=== PATIENT | female | born 1985 | race American Indian/Alaskan Native ===

== ENCOUNTER 2017-02-15 17:13 | Emergency (ER) | payer MEDICAID ==
[2017-02-15 17:53] VITALS: TEMP 98.9
--- NOTE | 2017-02-15 19:12 | C.PDOC ---
Time Seen by Provider: 02/15/17 19:11 Chief Complaint (Nursing): Shortness Of Breath Past Medical History Vital Signs: Last Vital Signs Temp 98.9 F 02/15/17 17:50 Pulse 99 H 02/15/17 17:50 Resp 22 02/15/17 17:50 BP 126/81 02/15/17 17:50 Pulse Ox 100 02/15/17 17:50 Family History: States: Unknown Family Hx - Social History Hx Tobacco Use: No Hx Alcohol Use: Yes Hx Substance Use: No - Immunization History Hx Tetanus Toxoid Vaccination: No Hx Influenza Vaccination: No Hx Pneumococcal Vaccination: No ED Course And Treatment O2 Sat by Pulse Oximetry: 100
[2017-02-15] MEDS ORDERED: Albuterol-Ipratrop 3 mg / 0.5 (3 ml) UD IH STA (19:18)
--- NOTE | 2017-02-15 19:19 | C.PDOC ---
History Of Present Illness A 31 y/o female presents to the ER c/o sore throat and ear pain for 6 days. Pt notes the pain as 4/10. Pt denies fever, chills, nausea, vomiting, or any other complaints. Time Seen by Provider: 02/15/17 19:11 Chief Complaint (Nursing): Shortness Of Breath History Per: Patient History/Exam Limitations: None Onset/Duration Of Symptoms: Days Current Symptoms Are (Timing): Still Present Quality (Mouth/Throat): Tenderness Symptoms Have Been: Continuous Severity: Moderate Pain Scale Rating Of: 4 Anticoagulant/Antiplatlet Use?: No Recent Aspirin Use: No Past Medical History Reviewed: Historical Data, Nursing Documentation, Vital Signs Vital Signs: Last Vital Signs Temp 98.9 F 02/15/17 17:50 Pulse 99 H 02/15/17 17:50 Resp 22 02/15/17 17:50 BP 126/81 02/15/17 17:50 Pulse Ox 100 02/15/17 19:25 Family History: States: Unknown Family Hx - Social History Hx Tobacco Use: No Hx Alcohol Use: Yes Hx Substance Use: No - Immunization History Hx Tetanus Toxoid Vaccination: No Hx Influenza Vaccination: No Hx Pneumococcal Vaccination: No Review Of Systems Except As Marked, All Systems Reviewed And Found Negative. Constitutional: Negative for: Fever, Chills ENT: Positive for: Ear Pain, Throat Pain Respiratory: Negative for: Shortness of Breath Gastrointestinal: Negative for: Nausea, Vomiting Musculoskeletal: Positive for: Neck Pain Skin: Negative for: Rash, Lesions, Jaundice, Bruising Neurological: Negative for: Weakness Psych: Negative for: Anxiety Physical Exam - Physical Exam Appears: Non-toxic, No Acute Distress Skin: Warm, Dry Head: Normacephalic Eye(s): bilateral: Normal Inspection, PERRL, EOMI Ear(s): Bilateral: Normal, Other (Lots of cerumen but TM visualized) Oral Mucosa: Moist Throat: Erythema (Mild), No Exudate, No Drooling Neck: Trachea Midline, Supple Chest: Symmetrical Cardiovascular: Rhythm Regular Respiratory: No Rales, No Rhonchi, No Wheezing Neurological/Psych: Oriented x3, Normal Speech, Normal Cognition, No Other (No focal deficit) Gait: Steady ED Course And Treatment O2 Sat by Pulse Oximetry: 100 (RA) Pulse Ox Interpretation: Normal Progress Note: patient does not want to get nebs, or wait for results. wants to go home Disposition Counseled Patient/Family Regarding: Studies Performed, Diagnosis, Need For Followup - Disposition Referrals: [facility] [Outside] Disposition: HOME/ ROUTINE Disposition Time: 19:18 Condition: FAIR Additional Instructions: Please return if symptoms recur Prescriptions: Albuterol HFA [Ventolin HFA 90 mcg/actuation (8 g)] 2 puff IH [id number] #1 puff Ibuprofen [Motrin] 600 mg PO TID PRN #15 tab PRN Reason: Pain, Moderate (4-7) Penicillin VK [Pen-Vee K] 2 tab PO BID #40 tab Instructions: Pharyngitis (ED), Tonsillitis (ED) - Clinical Impression Clinical Impression: Pharyngitis - Scribe Statement The provider has reviewed the documentation as recorded by the Vivianibdeo adan All medical record entries made by the Vivianibdeo were at my direction and personally dictated by me. I have reviewed the chart and agree that the record accurately reflects my personal performance of the history, physical exam, medical decision making, and the department course for this patient. I have also personally directed, reviewed, and agree with the discharge instructions and disposition.
[2017-02-15] MEDS ORDERED: Albuterol-Ipratrop 3 mg / 0.5 (3 ml) UD ONE (19:30)
[2017-02-15 19:50] VITALS: RESP 16
[2017-02-15 19:54] VITALS: BP 132/75; PULSE 98; O2SAT 98
== END 2017-02-15 19:53 | disposition home or self-care (01) ==
LOC: C.ER 17:13
DX: J02.9 Acute pharyngitis, unspecified (principal)

== ENCOUNTER 2017-05-12 19:50 | Emergency (ER) | payer MEDICAID ==
[2017-05-12 20:32] VITALS: O2SAT 100
[2017-05-12] MEDS ORDERED: Sodium Chloride 0.9% 1,000 ML IV ONE (21:00)
[2017-05-12] MEDS ORDERED: Sodium Chloride 0.9% 1,000 ML ONE (21:32)
--- NOTE | 2017-05-12 21:32 | C.PDOC ---
History Of Present Illness 32 year old female who presents to the ER with a complaint of abdominal pain, diarrhea, dizziness, and multiple episodes of vomiting after taking ambien for the first time this evening. 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 After not sleeping for 2 days, she went to her PMD who gave her an Rx for ambien; however, after taking it at 06:00 today she started developing these symptoms. Patient currently feels a burning sensation in her stomach and dizziness; denies any PMHx, Hx of similar symptoms, fever, or chills. Time Seen by Provider: 05/12/17 20:55 Chief Complaint (Nursing): Abdominal Pain History Per: Patient History/Exam Limitations: no limitations Onset/Duration Of Symptoms: Hrs Current Symptoms Are (Timing): Still Present Context: Other (Ambien) Location Of Pain/Discomfort: Diffuse Radiation Of Pain To:: None Quality Of Discomfort: Unable To Describe Associated Symptoms: Vomiting, Diarrhea. denies: Fever, Chills Exacerbating Factors: None Alleviating Factors: None Recent travel outside of the [place]: No Abnormal Vaginal Bleeding: No Past Medical History Reviewed: Historical Data, Nursing Documentation, Vital Signs Vital Signs: Last Vital Signs Temp 98 F 05/12/17 20:28 Pulse 96 H 05/12/17 20:28 Resp 20 05/12/17 20:28 BP 107/68 05/12/17 20:28 Pulse Ox 100 05/12/17 22:16 - Medical History PMH: No Chronic Diseases Surgical History: No Surg Hx Family History: States: Unknown Family Hx - Social History Hx Tobacco Use: No Hx Alcohol Use: Yes Hx Substance Use: No - Immunization History Hx Tetanus Toxoid Vaccination: No Hx Influenza Vaccination: No Hx Pneumococcal Vaccination: No Review Of Systems Constitutional: Negative for: Fever, Chills Gastrointestinal: Positive for: Vomiting, Abdominal Pain, Diarrhea Neurological: Positive for: Dizziness. Negative for: Weakness, Numbness Physical Exam - Physical Exam Appears: Non-toxic Skin: Normal Color, Warm, Dry Head: Atraumatic, Normacephalic Oral Mucosa: Moist Neck: Normal, Supple Chest: Symmetrical, No Tenderness Cardiovascular: Rhythm Regular, No Murmur Respiratory: Normal Breath Sounds, No Rales, No Rhonchi, No Wheezing Gastrointestinal/Abdominal: Bowel Sounds (Normal), Soft, Tenderness (Diffuse), No Guarding, No Rebound Neurological/Psych: Oriented x3, Normal Speech, Normal Cognition ED Course And Treatment - Laboratory Results Result Diagrams: 05/12/17 21:34 05/12/17 21:34 Lab Interpretation: No Acute Changes O2 Sat by Pulse Oximetry: 100 (Room air) Pulse Ox Interpretation: Normal Progress Note: Blood work ordered. Pepcid, reglan, zofran, and IV fluids administered. Reevaluation Time: 22:16 Reassessment Condition: Improved (Feeling better and feels as if she can tolerate po fluids.) Disposition Counseled Patient/Family Regarding: Studies Performed, Diagnosis, Need For Followup, Rx Given - Disposition Referrals: Ej Lundberg MD [Medical Doctor] - Disposition: HOME/ ROUTINE Disposition Time: 23:14 Condition: IMPROVED Prescriptions: Ondansetron ODT [Zofran ODT] 1 odt PO BID PRN #6 odt PRN Reason: Nausea/Vomiting Instructions: Acute Nausea and Vomiting (ED), Adverse Drug Reaction (ED) Forms: [employer] (Austrian), Work Excuse - Clinical Impression Clinical Impression: Nausea, Vomiting, Adverse reaction to drug - Scribe Statement The provider has reviewed the documentation as recorded by the Scribe Chico Fraser All medical record entries made by the Scribe were at my direction and personally dictated by me. I have reviewed the chart and agree that the record accurately reflects my personal performance of the history, physical exam, medical decision making, and the department course for this patient. I have also personally directed, reviewed, and agree with the discharge instructions and disposition.
[2017-05-12 21:37] LABS: BASO # 0.1 K/uL (0.0-0.2); BASO % 0.7 % (0.0-2.0); EOS # 0.1 K/uL (0.0-0.7); EOS % 0.5 % (0.0-4.0); HEMATOCRIT 41.6 % (34.0-47.0); LYMPH % 8.2 % (20.0-40.0); MEAN CELL VOLUME 87.8 fL (81.0-99.0); MEAN CORPUSCULAR HGB CONC 33.1 g/dL (33.0-37.0); MEAN PLATELET VOLUME 10.6 fL (7.2-11.7); MONO # 0.6 K/uL (0.0-0.8); MONO % 4.6 % (0.0-10.0); PLATELET COUNT 204 K/uL (130-400); RED CELL DISTRIBUTION WIDTH 13.8 % (11.5-14.5); WHITE BLOOD COUNT 12.2 K/uL (4.8-10.8)
[2017-05-12 21:46] LABS: CHLORIDE 102 mmol/L (98-107); POTASSIUM 4.3 mmol/L (3.6-5.2); SODIUM 138 mmol/L (132-148)
[2017-05-12 21:48] LABS: ALB/GLOB RATIO 1.1 (1.0-2.1); ALKALINE PHOSPHATASE 79 U/L (38-126); AST/SGOT 32 U/L (14-36); BILIRUBIN,TOTAL 0.9 mg/dL (0.2-1.3); CARBON DIOXIDE 21 mmol/L (22-30); GFR AFRICAN-AMERICAN > 60; TOTAL PROTEIN 8.4 g/dL (6.3-8.3)
[2017-05-12 21:49] LABS: ALT/SGPT 31 U/L (9-52); BLOOD UREA NITROGEN 14 mg/dL (7-17); CALCIUM 9.7 mg/dl (8.6-10.4); GLUCOSE,RANDOM 88 mg/dL (65-105)
[2017-05-12 22:22] LABS: NEUTROPHIL 83 % (50-75); TOTAL CELLS COUNTED 100
[2017-05-12 23:40] VITALS: BP 114/70; PULSE 90; RESP 16; TEMP 98.2
== END 2017-05-12 23:41 | disposition home or self-care (01) ==
LOC: C.ER 19:50
DX: R11.2 Nausea with vomiting, unspecified (principal); T42.6X5A Adverse effect of other antiepileptic and sedative-hypnotic drugs, initial encounter; Y92.009 Unspecified place in unspecified non-institutional (private) residence as the place of occurrence of the external cause
CPT/HCPCS: 80053; 83690; 85025; 96361; 96374; 96375; 99284; J2405; J2765; J7040

== ENCOUNTER 2017-06-05 04:42 | Emergency (ER) | payer MEDICAID ==
[2017-06-05 04:55] VITALS: RESP 14; TEMP 98.8
[2017-06-05] MEDS ORDERED: Sodium Chloride 0.9% 1,000 ML IV ONE ×2 (04:57)
--- NOTE | 2017-06-05 05:00 | C.PDOC ---
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 Pt admits, had few drinks when started to vomit , developed epigstric pain. Otherwise, pt denies fever, chills, headache, dizziness, visual changes, CP, SOB, dyspnea, hematemesis, diarrhea, UTI sx. Last NMP 2 weeks ago. At the time of evaluation, appears intoxicated. Time Seen by Provider: 06/05/17 04:56 Chief Complaint (Nursing): Abdominal Pain History Per: Patient Onset/Duration Of Symptoms: Sudden Onset Past Medical History Reviewed: Historical Data, Nursing Documentation, Vital Signs Vital Signs: Last Vital Signs Temp 98.8 F 06/05/17 04:53 Pulse 70 06/05/17 05:52 Resp 14 06/05/17 05:52 BP 104/54 L 06/05/17 05:52 Pulse Ox 96 06/05/17 05:52 Family History: States: Unknown Family Hx - Social History Hx Tobacco Use: No Hx Alcohol Use: Yes Hx Substance Use: No - Immunization History Hx Tetanus Toxoid Vaccination: No Hx Influenza Vaccination: No Hx Pneumococcal Vaccination: No Review Of Systems Except As Marked, All Systems Reviewed And Found Negative. Constitutional: Negative for: Fever, Chills Eyes: Negative for: Vision Change ENT: Negative for: Throat Pain Cardiovascular: Negative for: Chest Pain, Palpitations Respiratory: Negative for: Cough, Shortness of Breath, Wheezing Gastrointestinal: Positive for: Nausea, Vomiting, Abdominal Pain. Negative for : Diarrhea, Constipation, Melena, Hematochezia, Hematemesis Genitourinary: Negative for: Dysuria, Frequency, Vaginal Discharge, Vaginal Bleeding Musculoskeletal: Negative for: Neck Pain, Back Pain Skin: Negative for: Rash Neurological: Negative for: Weakness, Numbness, Altered Mental Status, Headache , Dizziness Physical Exam - Physical Exam Appears: Well, Non-toxic, No Acute Distress Skin: Normal Color, Warm, Dry, No Rash Head: Atraumatic, Normacephalic Eye(s): bilateral: PERRL Nose: No Flaring, No Discharge Oral Mucosa: Moist, No Drooling Tongue: Normal Appearing Lips: Normal Appearing Throat: No Erythema, No Drooling Neck: Trachea Midline, Supple Cardiovascular: Rhythm Regular, No Murmur, No JVD Respiratory: No Decreased Breath Sounds, No Accessory Muscle Use, No Stridor, No Wheezing Gastrointestinal/Abdominal: Soft, Tenderness (mild epigastric and suprapubic tenderness.), No Distention, No Guarding, No Rebound Back: No CVA Tenderness Extremity: Normal ROM, No Pedal Edema, No Deformity Neurological/Psych: Oriented x3, Normal Speech, Normal Motor, Normal Sensation, Normal Reflexes ED Course And Treatment - Laboratory Results Result Diagrams: 06/05/17 05:11 06/05/17 05:22 Lab Interpretation: No Acute Changes O2 Sat by Pulse Oximetry: 100 Pulse Ox Interpretation: Normal Progress Note: On re-eavl, pt resting comfortably in bed, not in any apparent distress. AFebrile, hemodynamicaly stable. non-toxic. Abd: benign, (-) guarding, (-) rebound. Blood work review and appears without acute abnoramlities. CT abd/pelvis-pendiing. Case discussed and signed out to Elodia FAULKNER. Imaging, re-eval, dispo- pending. Disposition - Disposition Disposition Time: 06:34 Condition: STABLE Forms: [employer] (Ecuadorean) - Clinical Impression Clinical Impression: Abdominal pain, Vomiting Physician Patient Turnover Patient Signed Over To: Yvonne Hayes Handoff Comments: CT abd/pelvis w/IV contrast, re-eval, dispo- pending
[2017-06-05] MEDS ORDERED: Sodium Chloride 0.9% 1,000 ML ONE (05:13)
[2017-06-05 05:14] LABS: BASO % 0.6 % (0.0-2.0); EOS % 0.8 % (0.0-4.0); LYMPH # 1.3 K/uL (1.0-4.3); LYMPH % 24.9 % (20.0-40.0); MEAN CELL VOLUME 88.9 fL (81.0-99.0); MEAN CORPUSCULAR HEMOGLOBIN 29.6 pg (27.0-31.0); MEAN CORPUSCULAR HGB CONC 33.3 g/dL (33.0-37.0); MEAN PLATELET VOLUME 9.8 fL (7.2-11.7); MONO # 0.3 K/uL (0.0-0.8); NRBC % 0.1 % (0.0-2.0); RED CELL DISTRIBUTION WIDTH 14.4 % (11.5-14.5); WHITE BLOOD COUNT 5.4 K/uL (4.8-10.8)
[2017-06-05 05:19] LABS: RBC URINE 5 /hpf (0-3); URINE BACTERIA RARE (<OCC); URINE BILIRUBIN NEGATIVE (NEGATIVE); URINE BLOOD 1+ (NEGATIVE); URINE COLOR Yellow (YELLOW); URINE GLUCOSE (UA) NORMAL (Normal); URINE KETONE NEGATIVE (NEGATIVE); URINE LEUKOCYTE ESTERASE NEG Leu/uL (Negative); URINE PROTEIN NEGATIVE (NEGATIVE); WBC URINE 2 /hpf (0-5)
[2017-06-05 05:56] VITALS: BP 104/54; PULSE 70
[2017-06-05 06:01] LABS: ALB/GLOB RATIO 1.1 (1.0-2.1); ALKALINE PHOSPHATASE 51 U/L (38-126); ALT/SGPT 30 U/L (9-52); AST/SGOT 17 U/L (14-36); BILIRUBIN,TOTAL 0.4 mg/dL (0.2-1.3); BLOOD UREA NITROGEN 12 mg/dL (7-17); CALCIUM 9.4 mg/dl (8.6-10.4); CARBON DIOXIDE 21 mmol/L (22-30); CHLORIDE 109 mmol/L (98-107); GFR AFRICAN-AMERICAN > 60; GLUCOSE,RANDOM 104 mg/dL (65-105); POTASSIUM 3.8 mmol/L (3.6-5.2); SODIUM 144 mmol/L (132-148); TOTAL PROTEIN 7.3 g/dL (6.3-8.3)
[2017-06-05] MEDS ORDERED: Iodixanol 320 MG/ML 100 ML BOTTLE IV ONE ×2 (06:25→06:31)
[2017-06-05 06:34] VITALS: O2SAT 100
== END 2017-06-05 06:56 | disposition left against medical advice (07) ==
LOC: C.ER 04:42
DX: R10.13 Epigastric pain (principal); R11.10 Vomiting, unspecified
CPT/HCPCS: 80053; 80324; 80345; 80346; 80349; 80353; 80358; 80361; 81001; 83690; 83992; 84703; 85025; 96374; 96375; 99284; J2405; J7040; Q9967

== ENCOUNTER 2017-06-14 10:42 | Emergency (ER) | payer MEDICAID ==
[2017-06-14 10:46] VITALS: BP 108/76; PULSE 104; RESP 20; TEMP 98.4; O2SAT 100
[2017-06-14 11:33] LABS: RBC URINE < 1 /hpf (0-3); URINE BILIRUBIN NEGATIVE (NEGATIVE); URINE BLOOD NEGATIVE (NEGATIVE); URINE COLOR Yellow (YELLOW); URINE GLUCOSE (UA) NORMAL (Normal); URINE KETONE NEGATIVE (NEGATIVE); URINE LEUKOCYTE ESTERASE NEG Leu/uL (Negative); URINE PROTEIN NEGATIVE (NEGATIVE); URINE UROBILINOGEN NORMAL mg/dL (0.2-1.0); WBC URINE 1 /hpf (0-5)
--- NOTE | 2017-06-14 11:43 | C.PDOC ---
History Of Present Illness 32 yo female come in for evaluation of watery diarrhea associated with cramping intermittent abdominal pain since yesterday. Pt admits, had cold sx last week associated with sore throat, nasal congestion and was seen by PMD, received Rx: Penicillin VK and Tamiflu. Pt sts, " cold sx resolved almost completely but yesterday developed diarrhea". Pt sts, had 4 episodes of watery diarrhea yesterday and few today. Pt sts, completed abx and has one more day today of Tamiflu , did not take. Otherwise, pt denies fever, chills, headache, neck pain, drooling, dysphagia, dyspnea, SOB, CP, cough, wheezing, vomiting, hematemesis, melena, back pain, UTI sx. Pt admits, had breakfast with chicken soup and banana, tolerate well. Pt also request test, " missed my menstrual for 4 days". Ambulate to Ed for evaluation, not in any apparent distress. Time Seen by Provider: 06/14/17 10:53 Chief Complaint (Nursing): GI Problem History Per: Patient Onset/Duration Of Symptoms: Gradual Past Medical History Reviewed: Historical Data, Nursing Documentation, Vital Signs Vital Signs: Last Vital Signs Temp 98.4 F 06/14/17 10:45 Pulse 104 H 06/14/17 10:45 Resp 20 06/14/17 10:45 BP 108/76 06/14/17 10:45 Pulse Ox 100 06/14/17 11:54 - Medical History PMH: No Chronic Diseases Surgical History: No Surg Hx Family History: States: No Known Family Hx - Social History Hx Tobacco Use: No Hx Alcohol Use: Yes Hx Substance Use: No - Immunization History Hx Tetanus Toxoid Vaccination: No Hx Influenza Vaccination: No Hx Pneumococcal Vaccination: No Review Of Systems Except As Marked, All Systems Reviewed And Found Negative. Constitutional: Negative for: Fever, Chills ENT: Positive for: Nose Congestion Respiratory: Negative for: Cough, Shortness of Breath, Wheezing Gastrointestinal: Positive for: Abdominal Pain, Diarrhea. Negative for: Nausea , Vomiting, Melena, Hematochezia, Hematemesis Genitourinary: Negative for: Dysuria Musculoskeletal: Negative for: Neck Pain, Back Pain Skin: Negative for: Rash Neurological: Negative for: Weakness, Numbness, Altered Mental Status, Headache , Dizziness Physical Exam - Physical Exam Appears: Well, No Acute Distress Skin: Normal Color, Warm, Dry, No Rash Eye(s): bilateral: PERRL Ear(s): Bilateral: Normal Nose: No Flaring, No Discharge Oral Mucosa: Moist, No Drooling Throat: No Erythema, No Exudate, No Drooling Neck: Supple Cardiovascular: Rhythm Regular, No JVD Respiratory: No Decreased Breath Sounds, No Accessory Muscle Use, No Stridor, No Wheezing Gastrointestinal/Abdominal: Soft, Tenderness (mild suprapubic tenderness), No Distention, No Guarding Back: No CVA Tenderness Extremity: No Pedal Edema, No Deformity, No Swelling Neurological/Psych: Oriented x3, Normal Speech, Normal Motor, Normal Sensation, Normal Reflexes ED Course And Treatment - Laboratory Results Urine POC: Negative O2 Sat by Pulse Oximetry: 100 Pulse Ox Interpretation: Normal Progress Note: On re-evaluation, pt is afebrile, hemodynamicaly stable. Non- toxic. Tolerate Po well in ED. PUlseOx 100% RA. Neck: Supple. ENT: no acute findings. Lungs: clear B/L, BS equal B/L. CVS: (+)S1S2, reg. ABd: benign, (- ) guarding, (-) rebound, (-) localized tenderness. UA results review and appears without normal. Pt has clinical findings c/w diarrhea r/o viral illness vs medication side effect. Pt advised on course of ds. ref. to F/u with PMD in 1- 2 days for re-evaluation. Return to ED if any worsening or new changes. Disposition Counseled Patient/Family Regarding: Diagnosis, Need For Followup, Rx Given - Disposition Referrals: Shaik Meyers MD [Staff Provider] - Disposition: HOME/ ROUTINE Disposition Time: 11:40 Condition: STABLE Additional Instructions: Encourage fluids Diet restriction, BRAT diet ( banana, rice, apple sauce, toast, advance as tolerated in 1-2 days Follow up with PMD In 1-2 days for re-evaluation. Return to ED if any worsening or new changes. Prescriptions: Famotidine [Pepcid AC] 10 mg PO BID #20 tablet Sucralfate [Carafate] 1 gm PO TID #20 tab Instructions: Acute Diarrhea (ED), Viral Syndrome (ED) Forms: [employer] (Icelandic), School Excuse, Work Excuse - Clinical Impression Clinical Impression: Viral disease, Diarrhea
== END 2017-06-14 12:15 | disposition home or self-care (01) ==
LOC: C.ER 10:42
DX: B34.9 Viral infection, unspecified (principal); R19.7 Diarrhea, unspecified

== ENCOUNTER 2017-06-27 12:24 | Emergency (ER) | payer MEDICAID ==
[2017-06-27 12:30] VITALS: RESP 18; TEMP 98
--- NOTE | 2017-06-27 13:10 | C.PDOC ---
History Of Present Illness 32 y/o female who presents to the ED complaining of a sore throat since yesterday. Patient reports she has an appointment to see Dr. Smallwood in a week. Time Seen by Provider: 06/27/17 12:32 Chief Complaint (Nursing): ENT Problem History Per: Patient History/Exam Limitations: None Onset/Duration Of Symptoms: Days (1 day ago) Current Symptoms Are (Timing): Still Present Quality (Mouth/Throat): Other (strep throat) Past Medical History Reviewed: Historical Data, Nursing Documentation, Vital Signs Vital Signs: Last Vital Signs Temp 98 F 06/27/17 12:27 Pulse 75 06/27/17 13:29 Resp 18 06/27/17 13:29 BP 132/75 06/27/17 13:29 Pulse Ox 100 06/27/17 14:49 - Medical History PMH: No Chronic Diseases Surgical History: No Surg Hx Family History: States: Unknown Family Hx - Social History Hx Tobacco Use: No Hx Alcohol Use: Yes Hx Substance Use: No - Immunization History Hx Tetanus Toxoid Vaccination: No Hx Influenza Vaccination: No Hx Pneumococcal Vaccination: No Review Of Systems Constitutional: Negative for: Fever ENT: Positive for: Throat Pain. Negative for: Ear Pain, Nose Congestion, Throat Swelling Cardiovascular: Negative for: Chest Pain Respiratory: Negative for: Shortness of Breath Gastrointestinal: Negative for: Abdominal Pain Genitourinary: Negative for: Dysuria Skin: Negative for: Rash Neurological: Negative for: Headache Physical Exam - Physical Exam Appears: Well, Non-toxic, No Acute Distress Skin: Normal Color, Warm, Dry Head: Atraumatic, Normacephalic Eye(s): bilateral: Normal Inspection, EOMI Ear(s): Bilateral: Normal Nose: Normal, No Discharge Oral Mucosa: Moist Tongue: Normal Appearing, No Swelling Lips: Normal Appearing, No Swelling Teeth: Normal Dentition Throat: Erythema, No Exudate, No Drooling, No Mass Neck: Normal ROM Chest: Symmetrical Cardiovascular: Rhythm Regular Respiratory: Normal Breath Sounds Extremity: Bilateral: Atraumatic, Normal ROM Neurological/Psych: Oriented x3, Normal Speech Gait: Steady ED Course And Treatment O2 Sat by Pulse Oximetry: 100 (room air) Pulse Ox Interpretation: Normal Medical Decision Making Medical Decision Making: Impression: 32 y/o female with sore throat since yesterday Plan: rapid strep Progress Notes: Step is negative. Patient remains without fever in no distress. Explain lab result. Patient is insisting on antibiotics stating she frequently gets throat infections. I will give Rx and recommend waiting few days and supportive treatment, if symptoms worsen may start the antibiotic. Patient is stable for discharge Disposition Counseled Patient/Family Regarding: Diagnosis, Need For Followup, Rx Given - Disposition Referrals: Avtar Smallwood MD [Staff Provider] - Disposition: HOME/ ROUTINE Disposition Time: 13:09 Condition: STABLE Additional Instructions: Take Tylenol or Motrin alternating every 4-6 hours for Fever 100.4F or higher. Rest and drink plenty of fluids to prevent dehydration. Try vanilla ice cream to improve eating/drinking, this is cold soothing and tastes good. May also try lozenges or cepacol spary over the counter. Prescriptions: Amoxicillin [Amoxil 500 mg Cap] 500 mg PO BID #14 cap Benzocaine/Menthol [Cepacol Sore Throat] 1 paul MM Q2 #30 paul Instructions: Pharyngitis (ED) Forms: [employer] (Danish) - POA Present On Arrival: None - Clinical Impression Clinical Impression: Pharyngitis - Scribe Statement The provider has reviewed the documentation as recorded by the Scribe 06/27/2017 Scribe Attestation: Anay Henriquez MD Scribe Attestation: All medical record entries made by the Scribe were at my direction and personally dictated by me. I have reviewed the chart and agree that the record accurately reflects my personal performance of the history, physical exam, medical decision making, and the department course for this patient. I have also personally directed, reviewed, and agree with the discharge instructions and disposition.
[2017-06-27 13:30] VITALS: BP 132/75; PULSE 75
[2017-06-27 13:55] VITALS: O2SAT 100
== END 2017-06-27 13:30 | disposition home or self-care (01) ==
LOC: C.ER 12:24
DX: J02.9 Acute pharyngitis, unspecified (principal)

== ENCOUNTER 2017-07-27 09:39 | Emergency (ER) | payer MEDICAID ==
[2017-07-27 09:39] VITALS: BMI 25.4
[2017-07-27 09:48] VITALS: RESP 18; TEMP 98.9
[2017-07-27 11:04] VITALS: BP 124/75; PULSE 71; O2SAT 98
--- NOTE | 2017-07-27 11:14 | C.PDOC ---
History Of Present Illness 32 year old female presents to the ED with complaints of white patches inside of her mouth for a few days. Patient has been taking antibiotics for her tonsils which are scheduled to be removed next month. She notes she removes the white-les plaques on her own at times. Patient denies pain with swallowing, bleeding, or fever. Chief Complaint (Nursing): ENT Problem History Per: Patient History/Exam Limitations: None Onset/Duration Of Symptoms: Days Current Symptoms Are (Timing): Still Present Anticoagulant/Antiplatlet Use?: No Recent Aspirin Use: No Past Medical History Reviewed: Historical Data, Nursing Documentation, Vital Signs Vital Signs: Last Vital Signs Temp 98.9 F 07/27/17 09:44 Pulse 71 07/27/17 11:04 Resp 18 07/27/17 11:04 BP 124/75 07/27/17 11:04 Pulse Ox 98 07/27/17 18:38 Family History: States: Unknown Family Hx - Social History Hx Tobacco Use: No Hx Alcohol Use: Yes Hx Substance Use: No - Immunization History Hx Tetanus Toxoid Vaccination: No Hx Influenza Vaccination: No Hx Pneumococcal Vaccination: No Review Of Systems Constitutional: Negative for: Fever, Chills ENT: Positive for: Other (white patches inside mouth and mouth ). Negative for : Ear Pain, Nose Congestion Respiratory: Negative for: Cough Skin: Negative for: Rash Physical Exam - Physical Exam Appears: Non-toxic, No Acute Distress Skin: Warm, Dry, No Rash Head: Atraumatic, Normacephalic Eye(s): bilateral: Normal Inspection, PERRL, EOMI Ear(s): Bilateral: Normal Nose: Normal, No Discharge Oral Mucosa: Moist Tongue: Other (two punctate white-les nodules noted on left side of tongue ) Lips: Normal Appearing, No Swelling Throat: Normal, No Erythema, No Exudate Neck: Normal ROM, Supple Lymphatic: No Adenopathy Cardiovascular: Rhythm Regular, No Murmur Respiratory: No Rales, No Rhonchi, No Wheezing, Other (clear to auscultation bilaterally ) Neurological/Psych: Oriented x3 ED Course And Treatment O2 Sat by Pulse Oximetry: 98 (RA) Disposition - Disposition Referrals: Aura Rider, [Non-Staff] - Disposition: HOME/ ROUTINE Disposition Time: 10:10 Condition: GOOD Additional Instructions: Thank you for letting us take care of you today. Your provider was Dr. Darling. You were treated for mouth pain. The emergency medical care you received today was directed at your acute symptoms. If you were prescribed any medication, please fill it and take as directed. It may take several days for your symptoms to resolve. Return to the Emergency Department if your symptoms worsen, do not improve, or if you have any other problems. Please contact your doctor or call one of the physicians/clinics you have been referred to that are listed on the Patient Visit Information form that is included in your discharge packet. Bring any paperwork you were given at discharge with you along with any medications you are taking to your follow up visit. Our treatment cannot replace ongoing medical care by a primary care provider (PCP) outside of the emergency department. Thank you for allowing the [facility] team to be part of your care today. Follow up with your ENT doctor as scheduled for follow up. Prescriptions: Nystatin [Nystatin Oral Susp] 5 ml PO QID #1 bottle Instructions: Oral Candidiasis (ED) Forms: [employer] (Sri Lankan) - Clinical Impression Clinical Impression: Estefani, oral - Scribe Statement The provider has reviewed the documentation as recorded by the Scribe Oneida Hudson All medical record entries made by the Scribe were at my direction and personally dictated by me. I have reviewed the chart and agree that the record accurately reflects my personal performance of the history, physical exam, medical decision making, and the department course for this patient. I have also personally directed, reviewed, and agree with the discharge instructions and disposition.
== END 2017-07-27 11:05 | disposition home or self-care (01) ==
LOC: C.ER 09:39
DX: B37.0 Candidal stomatitis (principal)

== ENCOUNTER 2017-08-15 16:15 | Emergency (ER) | payer MEDICAID ==
[2017-08-15 16:15] VITALS: BMI 25.4
[2017-08-15 16:20] VITALS: TEMP 97.9
--- NOTE | 2017-08-15 17:35 | C.PDOC ---
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 Patient states her symptoms began after she ate pasta 1 hour ago. Patient then laid down and felt the sensation of blood draining down her throat. Patient states her symptoms have self-improved since onset. She denies fever, chills and has no other physical complaints at this time. Time Seen by Provider: 08/15/17 16:31 Chief Complaint (Nursing): ENT Problem History Per: Patient History/Exam Limitations: None Onset/Duration Of Symptoms: Hrs Current Symptoms Are (Timing): Better Quality (Mouth/Throat): Other (tonsillar bleeding ) Past Medical History Reviewed: Historical Data, Nursing Documentation, Vital Signs Vital Signs: Last Vital Signs Temp 97.9 F 08/15/17 16:18 Pulse 106 H 08/15/17 16:18 Resp 21 08/15/17 16:18 BP 136/99 H 08/15/17 16:18 Pulse Ox 100 08/15/17 18:03 - Medical History PMH: No Chronic Diseases Surgical History: Tonsillectomy (08/06/2017) Family History: States: Unknown Family Hx - Social History Hx Tobacco Use: No Hx Alcohol Use: Yes Hx Substance Use: No - Immunization History Hx Tetanus Toxoid Vaccination: No Hx Influenza Vaccination: No Hx Pneumococcal Vaccination: No Review Of Systems Constitutional: Negative for: Fever, Chills ENT: Positive for: Other (tonsillar bleeding ) Physical Exam - Physical Exam Appears: Well, Non-toxic, No Acute Distress, Other (anxious; pt spitting in cup , some blood noted in the cup) Skin: Warm, Dry Head: Atraumatic, Normacephalic Eye(s): bilateral: Normal Inspection, EOMI Nose: Normal Oral Mucosa: Moist Throat: Other ((+) RIght: blood clot (+) Left : min active bleeding and blood clot ) Neck: Normal, Normal ROM, Supple Chest: Symmetrical Respiratory: No Accessory Muscle Use Back: Normal Inspection Extremity: Normal ROM Neurological/Psych: Oriented x3, Normal Speech ED Course And Treatment O2 Sat by Pulse Oximetry: 100 (on RA) Pulse Ox Interpretation: Normal Progress Note: Case discussed with Dr Smallwood who instructes to gargle with ice water for 20 min. On re-evaluation, pt has been spitting the water out in the basin and there is no blood. Pt notes symptoms improved. (+) b/l eschar. No active bleeding or clots. Case discussed and pt evaluated by Dr Moya, agreed upon plan and treatment. Case discussed with Dr Smallwood again at 530pm, who instructed follow up in the office tomorrow morning at 9am. Pt was informed and agrees. Instructed to return to ER if symtpoms persist or worsen. Disposition - Disposition Referrals: Avtar Smallwood MD [Staff Provider] - Disposition: HOME/ ROUTINE Disposition Time: 18:00 Condition: STABLE Additional Instructions: Follow up with Dr Smallwood tomorrow morning at 9am in his office. Return to ER if symptoms return. 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 - Scribe Statement The provider has reviewed the documentation as recorded by the Scribe (Nerissa Love) All medical record entries made by the Scribe were at my direction and personally dictated by me. I have reviewed the chart and agree that the record accurately reflects my personal performance of the history, physical exam, medical decision making, and the department course for this patient. I have also personally directed, reviewed, and agree with the discharge instructions and disposition.
[2017-08-15 18:12] VITALS: BP 117/78; PULSE 91; RESP 18; O2SAT 97
== END 2017-08-15 18:13 | disposition home or self-care (01) ==
LOC: C.ER 16:15
DX: T81.89XA Other complications of procedures, not elsewhere classified, initial encounter (principal); Y83.8 Other surgical procedures as the cause of abnormal reaction of the patient, or of later complication, without mention of misadventure at the time of the procedure; Y92.89 Other specified places as the place of occurrence of the external cause

== ENCOUNTER 2017-10-05 07:59 | Emergency (ER) | payer MEDICAID ==
[2017-10-05 08:00] VITALS: BMI 25.4
[2017-10-05 08:07] VITALS: RESP 16
[2017-10-05] MEDS ORDERED: Dextrose 5%/0.45% NS 1,000 ML IV SCH ×2 (08:30→08:45)
[2017-10-05] MEDS ORDERED: Dextrose 5%/0.45% NS 1,000 ML IV ONE (08:36)
--- NOTE | 2017-10-05 08:42 | C.PDOC ---
History Of Present Illness 32 y/o female A2 and currently presents to ED with complaints of suprapubic pain with associated vomiting for 2 days and diarrhea since last night. Patient states she has decreased po intake and states she "feels weak". Patient denies fever, chills, vaginal bleeding, dysuria or any other complaints at this time. LMP 08/19/17 Time Seen by Provider: 10/05/17 08:11 Chief Complaint (Nursing): Abdominal Pain History Per: Patient History/Exam Limitations: no limitations Onset/Duration Of Symptoms: Days Current Symptoms Are (Timing): Still Present Location Of Pain/Discomfort: Suprapubic Quality Of Discomfort: Cramping Past Medical History Reviewed: Historical Data, Nursing Documentation, Vital Signs Vital Signs: Last Vital Signs Temp 98.7 F 10/05/17 12:23 Pulse 92 H 10/05/17 12:23 Resp 16 10/05/17 12:23 BP 99/62 L 10/05/17 12:23 Pulse Ox 100 10/07/17 11:28 Surgical History: Tonsillectomy (08/06/2017) Family History: States: No Known Family Hx - Social History Hx Tobacco Use: No Hx Alcohol Use: Yes Hx Substance Use: No - Immunization History Hx Tetanus Toxoid Vaccination: No Hx Influenza Vaccination: No Hx Pneumococcal Vaccination: No Review Of Systems Constitutional: Negative for: Fever, Chills Gastrointestinal: Positive for: Vomiting, Abdominal Pain, Diarrhea Genitourinary: Negative for: Dysuria, Vaginal Bleeding Musculoskeletal: Negative for: Back Pain Skin: Negative for: Rash Neurological: Positive for: Weakness Physical Exam - Physical Exam Additional Physical Exam Comments: Constitutional: No acute distress. WDWN. Head: Normocephalic. Atraumatic. Eyes: PERRL. EOMI. ENT: mildy dry mucous membranes. Neck: Supple. Cardiovascular: Regular rate and rhythm. no murmur Chest: No tenderness. Respiratory: Clear to auscultation bilaterally. GI: Suprapubic tenderness, no rebound or guarding, no distension. normoactive bs Back: No CVA and no mid-line tenderness. Musculoskeletal: No tenderness or swelling of extremities. Skin: No rash. Neurologic: Alert, no focal deficit. 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 it was a difficult to draw blood from this patient, comprehensive just drawn by margarita and sent to lab. pt is tolerating po fluids and crackers and feels much better. pt understands she is leaving ama because cmp not resulted, but that I will call her if any abnormal results requiring her to return to ED for further treatment. abdomen on re-exam soft, nd, nt. 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 pt given copy of sono results to bring to her shank scourer. 5 pm called patient with cmp results, she is feeling well at this time. Disposition - Disposition Referrals: [facility] at [facility] [Outside] Disposition: AGAINST MEDICAL ADVICE Disposition Time: 12:58 Condition: STABLE Additional Instructions: Follow up with tobacco grader as soon as possible. Take zofran if needed for nausea. Drink increased fluids. Return to ER for any abdominal pain, persistent vomiting or any other concerns. 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 - Scribe Statement The provider has reviewed the documentation as recorded by the Ana Kaur All medical record entries made by the Ana were at my direction and personally dictated by me. I have reviewed the chart and agree that the record accurately reflects my personal performance of the history, physical exam, medical decision making, and the department course for this patient. I have also personally directed, reviewed, and agree with the discharge instructions and disposition.
[2017-10-05 09:02] LABS: MONO # 0.8 K/uL (0.0-0.8); RED CELL DISTRIBUTION WIDTH 13.1 % (11.5-14.5)
[2017-10-05 09:19] LABS: BASO % 0.4 % (0.0-2.0); EOS % 0.3 % (0.0-4.0); HEMOGLOBIN 14.3 g/dL (11.0-16.0); LYMPH # 1.5 K/uL (1.0-4.3); LYMPH % 16.5 % (20.0-40.0); MEAN CELL VOLUME 88.7 fL (81.0-99.0); MEAN CORPUSCULAR HEMOGLOBIN 30.3 pg (27.0-31.0); MEAN CORPUSCULAR HGB CONC 34.2 g/dL (33.0-37.0); MEAN PLATELET VOLUME 10.8 fL (7.2-11.7); MONO % 8.4 % (0.0-10.0); NEUT # 6.9 K/uL (1.8-7.0); NEUT % 74.4 % (50.0-75.0); NRBC % 0.5 % (0.0-2.0); RBC 4.71 Mil/uL (3.80-5.20)
[2017-10-05 09:26] LABS: WHITE BLOOD COUNT 9.3 K/uL (4.8-10.8)
[2017-10-05 09:40] LABS: SQUAMOUS EPITHIAL 9 /hpf (0-5); URINE BILIRUBIN NEGATIVE (NEGATIVE); URINE BLOOD NEGATIVE (NEGATIVE); URINE CLARITY Clear (Clear); URINE COLOR Amber (YELLOW); URINE GLUCOSE (UA) NORMAL (Normal); URINE LEUKOCYTE ESTERASE NEG Leu/uL (Negative); URINE NITRATE NEGATIVE (NEGATIVE); URINE PROTEIN 1+ mg/dL (NEGATIVE)
--- NOTE | 2017-10-05 11:58 | US ---
Indication: Lower abdominal pain and Comparison: None available Technique: Transabdominal ultrasound of the pelvis. Findings: The uterus measures approximately 10.0 x 5.2 x 6.5 cm. Anteverted. Cervix length measures approximately 2.4 cm. There is a single intrauterine fetus present. The gestational sac measures 2.5 cm and is compatible with a gestational age of 7 weeks 2 days. The crown-rump length measures 0.8 cm and is compatible with a gestational age of 6 weeks 5 days. There is heart motion which measured 129.2 BPM. The right ovary measures 3.2 x 1.7 x 2.7 cm. The left ovary measures 2.6 x 2.2 x 2.7. Blood flow was demonstrated to both ovaries. Impression: Live single intrauterine with estimated gestational age 7 weeks 0 days. heart rate 129.2 bpm. Advise an anomaly screen at 16-18 weeks gestational age
[2017-10-05 12:23] VITALS: BP 99/62; PULSE 92; TEMP 98.7
[2017-10-05 12:59] VITALS: O2SAT 100
[2017-10-05 13:17] LABS: ALB/GLOB RATIO 1.2 (1.0-2.1); ALBUMIN 4.3 g/dL (3.5-5.0); ALT/SGPT 17 U/L (9-52); AST/SGOT 17 U/L (14-36); BLOOD UREA NITROGEN 8 mg/dL (7-17); CALCIUM 8.9 mg/dl (8.6-10.4); GFR AFRICAN-AMERICAN > 60; GFR NON-AFRICAN AMERICAN > 60
== END 2017-10-05 13:10 | disposition left against medical advice (07) ==
LOC: C.ER 07:59
DX: O21.0 Mild hyperemesis gravidarum (principal); R10.30 Lower abdominal pain, unspecified; Z3A.01 Less than 8 weeks gestation of pregnancy
CPT/HCPCS: 76801; 80053; 81001; 84702; 85025; 96374; 99285; J2405; J7042

== ENCOUNTER 2018-06-01 08:03 | Emergency (ER) | payer MEDICAID ==
[2018-06-01 08:03] VITALS: BMI 25.4
[2018-06-01 08:13] VITALS: BP 104/68; PULSE 70; RESP 18; TEMP 98.4; O2SAT 100
[2018-06-01] MEDS ORDERED: Tobramycin 0.3% OPHT SOLN OD STA (08:24)
--- NOTE | 2018-06-01 08:33 | C.PDOC ---
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 Patient reports coworkers have developed pink eye and is concern for same. Patient denies fever, chills, vision changes, sore throat or any other complaints at this time. Time Seen by Provider: 06/01/18 08:04 Chief Complaint (Nursing): Eye Problem History Per: Patient History/Exam Limitations: no limitations Onset/Duration Of Symptoms: Days Current Symptoms Are (Timing): Still Present Past Medical History Reviewed: Historical Data, Nursing Documentation, Vital Signs Vital Signs: Last Vital Signs Temp 98.4 F 06/01/18 08:12 Pulse 70 06/01/18 08:12 Resp 18 06/01/18 08:12 BP 104/68 06/01/18 08:12 Pulse Ox 100 06/01/18 08:36 - Medical History PMH: No Chronic Diseases Surgical History: Tonsillectomy (08/06/2017) Family History: States: No Known Family Hx - Social History Hx Tobacco Use: No Hx Alcohol Use: Yes Hx Substance Use: No - Immunization History Hx Tetanus Toxoid Vaccination: No Hx Influenza Vaccination: No Hx Pneumococcal Vaccination: No Review Of Systems Constitutional: Negative for: Fever, Chills Eyes: Positive for: Pain, Redness. Negative for: Vision Change ENT: Negative for: Ear Pain, Throat Pain Respiratory: Negative for: Cough Gastrointestinal: Negative for: Nausea, Vomiting, Abdominal Pain Skin: Negative for: Rash Physical Exam - Physical Exam Appears: Non-toxic, No Acute Distress Skin: Warm, Dry, No Rash Head: Atraumatic, Normacephalic Eye(s): right: Other (conjunctival injection, no crusting or discharge noted), left: Normal Inspection, PERRL Ear(s): Bilateral: Normal Oral Mucosa: Moist Throat: Normal, No Erythema, No Exudate Cardiovascular: Rhythm Regular Respiratory: Normal Breath Sounds, No Rales, No Rhonchi, No Wheezing Gastrointestinal/Abdominal: Soft, No Tenderness, No Guarding, No Rebound Neurological/Psych: Oriented x3, Normal Speech, Normal Cognition ED Course And Treatment O2 Sat by Pulse Oximetry: 100 (RA) Pulse Ox Interpretation: Normal Progress Note: Patient given Abx drops and discharge with advised follow up to pmd in 1-2 days. Reassessment Condition: Improved Disposition Counseled Patient/Family Regarding: Diagnosis, Need For Followup, Rx Given - Disposition Referrals: [facility] [Outside] [facility] [Outside] Disposition: HOME/ ROUTINE Disposition Time: 09:00 Condition: GOOD Additional Instructions: Follow up with PMD or clinic Use drops as directed Prescriptions: Tobramycin 0.3% [Tobrex 0.3% Ophth Soln] 2 drop BOTHEYES Q6 7 Days #1 bottle Instructions: Conjunctivitis (Pinkeye) Forms: [employer] [facility] (Icelandic) - POA Present On Arrival: None - Clinical Impression Clinical Impression: Conjunctivitis - 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 - Scribe Statement The provider has reviewed the documentation as recorded by the Vivianibdeo Kaur All medical record entries made by the Ana were at my direction and personally dictated by me. I have reviewed the chart and agree that the record accurately reflects my personal performance of the history, physical exam, medical decision making, and the department course for this patient. I have also personally directed, reviewed, and agree with the discharge instructions and disposition.
[2018-06-01] MEDS ORDERED: Tobramycin 0.3% OPH OINT ONE (08:34)
== END 2018-06-01 08:51 | disposition home or self-care (01) ==
LOC: C.ER 08:03
DX: H10.9 Unspecified conjunctivitis (principal)

== ENCOUNTER 2018-06-07 08:15 | Emergency (ER) | payer MEDICAID ==
[2018-06-07 08:15] VITALS: BMI 25.4
[2018-06-07 08:21] VITALS: BP 113/76; PULSE 97; RESP 18; TEMP 98.5; O2SAT 100
--- NOTE | 2018-06-07 09:19 | C.PDOC ---
History Of Present Illness 33 y/o female with History of hemorrhoids presents to ED with c/o painless bright red blood per rectum and irritation to right eye. Patient admits to constipation, possible contribution to symptoms. Patient has been on antibiotics for eyes with no improvement and denies dysuria, vaginal bleeding, vision loss, trauma, headache or any other complaints at this time. Time Seen by Provider: 06/07/18 08:50 Chief Complaint (Nursing): GI Problem History Per: Patient History/Exam Limitations: no limitations Onset/Duration Of Symptoms: Days Current Symptoms Are (Timing): Still Present Past Medical History Reviewed: Historical Data, Nursing Documentation, Vital Signs Vital Signs: Last Vital Signs Temp 98.5 F 06/07/18 08:18 Pulse 97 H 06/07/18 08:18 Resp 18 06/07/18 08:18 BP 113/76 06/07/18 08:18 Pulse Ox 100 06/07/18 09:31 - Medical History PMH: No Chronic Diseases Surgical History: Tonsillectomy (08/06/2017) Family History: States: No Known Family Hx - Social History Hx Tobacco Use: No Hx Alcohol Use: Yes Hx Substance Use: No - Immunization History Hx Tetanus Toxoid Vaccination: No Hx Influenza Vaccination: No Hx Pneumococcal Vaccination: No Review Of Systems Except As Marked, All Systems Reviewed And Found Negative. Eyes: Positive for: Pain Gastrointestinal: Positive for: Constipation, Rectal Pain Physical Exam - Physical Exam Appears: Non-toxic, No Acute Distress Skin: Warm, Dry, No Rash Head: Atraumatic, Normacephalic Eye(s): bilateral: PERRL, EOMI, right: Other (conjunctiva injection. no proptosis or foreign body noted), left: Normal Inspection Oral Mucosa: Moist Neck: Normal ROM, Supple Cardiovascular: Rhythm Regular Respiratory: Normal Breath Sounds, No Rales, No Rhonchi, No Wheezing Gastrointestinal/Abdominal: Soft, No Tenderness, No Guarding, No Rebound Rectal: Other (+ anal fissure) Back: No CVA Tenderness Neurological/Psych: Oriented x3, Normal Speech, Normal Cognition ED Course And Treatment O2 Sat by Pulse Oximetry: 100 (RA) Pulse Ox Interpretation: Normal Medical Decision Making Medical Decision Making: Assessment: Anal fissure, Conjunctivitis Disposition Counseled Patient/Family Regarding: Diagnosis, Need For Followup - Disposition Referrals: Thang Greenfield MD [Staff Provider] - Akash Bojorquez MD [Staff Provider] - Disposition Time: 09:16 Condition: STABLE Additional Instructions: follow up with gi and opthamology within 2 days call to make an appointment take medications as planned return to ER if symptoms worsens or progress Prescriptions: Docusate Sodium [Colace] 100 mg PO DAILY PRN #12 capsule PRN Reason: Constipation Gentamicin Sulfate [Garamycin 0.3% Opth] 1 drop OU QID #1 bottle Hard Fat/Phenylephrine Villalba [Hemorrhoidal 88.7%-0.25%] 1 sup RC DAILY PRN #12 sup PRN Reason: Hemorrhoids Hydrocortisone 2.5% (Rectal) [Anusol-HC] 1 appl RC BID #1 tube Instructions: Anal Fissure (DC), Conjunctivitis (Pinkeye) (DC) Forms: [facility] (Yoruba), General Discharge Instructions - Clinical Impression Clinical Impression: Conjunctivitis, Anal fissure - Vivianibe Statement The provider has reviewed the documentation as recorded by the Ana Kaur All medical record entries made by the Ana were at my direction and personally dictated by me. I have reviewed the chart and agree that the record accurately reflects my personal performance of the history, physical exam, medical decision making, and the department course for this patient. I have also personally directed, reviewed, and agree with the discharge instructions and disposition.
== END 2018-06-07 09:50 | disposition home or self-care (01) ==
LOC: C.ER 08:15
DX: H10.9 Unspecified conjunctivitis (principal); K60.2 Anal fissure, unspecified

== ENCOUNTER 2018-10-07 09:31 | Emergency (ER) | payer MEDICAID ==
[2018-10-07 09:32] VITALS: BMI 25.4
[2018-10-07 09:41] VITALS: O2SAT 100
--- NOTE | 2018-10-07 10:00 | C.PDOC ---
History Of Present Illness 33 y/o female with a PMHx of s/p tonsillectomy, presents to the ED complaining of RLQ and suprapubic pain since last night. Pain is described as sharp, stabbing, and non-radiating. No associated fall or trauma. LMP was 09/25/18 and was normal. Otherwise she denies any vaginal discharge, constipation, diarrhea, dark or bloody stool, fever, chills, night sweats, nausea, vomiting, or urinary complaints. Patient did not take any pain medications prior to arrival. Of note, patient is scheduled for a colonoscopy next week. <Toni Paul - Last Filed: 10/08/18 02:06> <Mouna Cuevas - Last Filed: 10/07/18 20:48> History Per: Patient History/Exam Limitations: no limitations Onset/Duration Of Symptoms: Days (x 2) Current Symptoms Are (Timing): Still Present Severity: Moderate Location Of Pain/Discomfort: RLQ, Suprapubic Radiation Of Pain To:: None Alleviating Factors: None Abnormal Vaginal Bleeding: No Last Menstral Period: 09/25/18 <Toni Paul - Last Filed: 10/08/18 02:06> Time Seen by Provider: 10/07/18 09:43 Chief Complaint (Nursing): Abdominal Pain Past Medical History Vital Signs: Last Vital Signs Temp 98.7 F 10/07/18 15:45 Pulse 84 10/07/18 15:45 Resp 20 10/07/18 15:45 BP 108/71 10/07/18 15:45 Pulse Ox 100 10/07/18 19:19 <Mouna Cuevas - Last Filed: 10/07/18 20:48> Reviewed: Historical Data, Nursing Documentation, Vital Signs Vital Signs: Last Vital Signs Temp 98.4 F 10/07/18 09:36 Pulse 98 H 10/07/18 09:36 Resp 18 10/07/18 09:36 BP 111/76 10/07/18 09:36 Pulse Ox 100 10/07/18 09:36 - Medical History PMH: No Chronic Diseases Denies: Chronic Kidney Disease Surgical History: Tonsillectomy (08/06/2017) Family History: States: Unknown Family Hx - Social History Hx Tobacco Use: No Hx Alcohol Use: Yes Hx Substance Use: No - Immunization History Hx Tetanus Toxoid Vaccination: No Hx Influenza Vaccination: No Hx Pneumococcal Vaccination: No <Toni Paul - Last Filed: 10/08/18 02:06> Review Of Systems Constitutional: Negative for: Fever, Chills, Sweats Eyes: Negative for: Vision Change Cardiovascular: Negative for: Chest Pain Respiratory: Negative for: Shortness of Breath Gastrointestinal: Positive for: Abdominal Pain (RLQ, suprapubic). Negative for: Nausea, Vomiting, Diarrhea, Constipation, Melena, Hematochezia Genitourinary: Negative for: Dysuria, Frequency, Hematuria, Vaginal Discharge Neurological: Negative for: Weakness, Numbness <Toni Paul - Last Filed: 10/08/18 02:06> Physical Exam - Physical Exam Appears: Non-toxic, No Acute Distress Skin: Warm, Dry Head: Normacephalic Eye(s): bilateral: Normal Inspection, PERRL, EOMI Oral Mucosa: Moist Neck: Trachea Midline, Supple, Other (No meningeal signs- negative kernig's and brudzinskis) Chest: Symmetrical Cardiovascular: Rhythm Regular, No Friction Rub Respiratory: No Rales, No Rhonchi, No Wheezing Gastrointestinal/Abdominal: Soft, Tenderness (to the RLQ and suprapubic region), No Guarding, No Rebound Back: No CVA Tenderness, No Vertebral Tenderness Extremity: Bilateral: Normal Color And Temperature Pulses: Left Dorsalis Pedis: Normal, Right Dorsalis Pedis: Normal Neurological/Psych: Oriented x3 Gait: Steady <Toni Paul - Last Filed: 10/08/18 02:06> ED Course And Treatment - Laboratory Results Result Diagrams: 10/07/18 11:42 10/07/18 11:42 <Mouna Cuevas - Last Filed: 10/07/18 20:48> - Laboratory Results Result Diagrams: 10/07/18 11:42 10/07/18 11:42 O2 Sat by Pulse Oximetry: 100 (RA) Pulse Ox Interpretation: Normal <Toni Paul Last Filed: 10/08/18 02:06> Medical Decision Making Medical Decision Makin33 y/o F with PMHx significant only for tonsillectomy, p/w RLQ and suprapubic abdominal pain. No vaginal discharge, constipation, diarrhea, dark or bloody stool, fever, chills, night sweats, nausea, vomiting, or urinary symptoms. Prior surgical hx includes tonsillectomy, pt scheduled for colonoscopy next week. 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 I endorsed the possibility of and or disability if she left against medical advice. 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 Given understanding of / disability pt signed out AMA and encouraged to return. <Toni Paul - Last Filed: 10/08/18 02:06> Disposition <Mouna Cuevas - Last Filed: 10/07/18 20:48> - Disposition Disposition Time: 16:30 <Toni Paul - Last Filed: 10/08/18 02:06> - Disposition Disposition: AGAINST MEDICAL ADVICE Condition: FAIR Forms: [facility] (Niuean) - Clinical Impression Clinical Impression: Abdominal pain - Scribe Statement The provider has reviewed the documentation as recorded by the Vivianibdeo Infante Provider Attestation: All medical record entries made by the Scribe were at my direction and personally dictated by me. I have reviewed the chart and agree that the record accurately reflects my personal performance of the history, physical exam, medical decision making, and the department course for this patient. I have also personally directed, reviewed, and agree with the discharge instructions and disposition. <Toni Paul - Last Filed: 10/08/18 02:06>
[2018-10-07] MEDS ORDERED: Sodium Chloride 0.9% 1,000 ML ONE (10:25)
[2018-10-07] MEDS ORDERED: Sodium Chloride 0.9% 1,000 ML IV SCH (10:30)
[2018-10-07 10:58] LABS: SQUAMOUS EPITHIAL 6 /hpf (0-5); URINE BILIRUBIN NEGATIVE (NEGATIVE); URINE BLOOD NEGATIVE (NEGATIVE); URINE CLARITY Hazy (Clear); URINE COLOR Yellow (YELLOW); URINE GLUCOSE (UA) NORMAL (Normal); URINE LEUKOCYTE ESTERASE NEG Leu/uL (Negative); URINE PROTEIN NEGATIVE (NEGATIVE)
[2018-10-07 11:51] LABS: BASO # 0.1 K/uL (0.0-0.2); BASO % 0.8 % (0.0-2.0); EOS % 0.5 % (0.0-4.0); HEMOGLOBIN 12.1 g/dL (11.0-16.0); LYMPH % 26.9 % (20.0-40.0); MEAN CELL VOLUME 88.2 fL (81.0-99.0); MEAN CORPUSCULAR HEMOGLOBIN 30.3 pg (27.0-31.0); MEAN CORPUSCULAR HGB CONC 34.4 g/dL (33.0-37.0); MEAN PLATELET VOLUME 10.1 fL (7.2-11.7); MONO # 0.5 K/uL (0.0-0.8); MONO % 6.5 % (0.0-10.0); NEUT # 4.8 K/uL (1.8-7.0); NEUT % 65.3 % (50.0-75.0); NRBC % 0.1 % (0.0-2.0); RBC 3.98 Mil/uL (3.80-5.20); RED CELL DISTRIBUTION WIDTH 13.2 % (11.5-14.5); WHITE BLOOD COUNT 7.3 K/uL (4.8-10.8)
[2018-10-07 12:08] LABS: ALB/GLOB RATIO 1.4 (1.0-2.1); ALBUMIN 4.3 g/dL (3.5-5.0); ALT/SGPT 21 U/L (9-52); AST/SGOT 23 U/L (14-36); BLOOD UREA NITROGEN 17 mg/dL (7-17); CALCIUM 9.1 mg/dl (8.6-10.4); GFR NON-AFRICAN AMERICAN > 60
[2018-10-07] MEDS ORDERED: Iodixanol 320 mg/ml 150 ml Bottle IV ONE (13:35)
--- NOTE | 2018-10-07 15:09 | CT ---
Date of service: 10/07/2018 PROCEDURE: CT Abdomen and Pelvis with contrast HISTORY: rlq, suprapubic abd pain COMPARISON: None TECHNIQUE: CT scan of the abdomen and pelvis was performed after administration of intravenous contrast. Oral contrast was not administered. Coronal and sagittal reformatted images were obtained. Contrast dose 100 mL Visipaque 320 Radiation dose: Total exam DLP = 398.01 mGy-cm. This CT exam was performed using one or more of the following dose reduction techniques: Automated exposure control, adjustment of the mA and/or kV according to patient size, and/or use of iterative reconstruction technique. FINDINGS: LOWER THORAX: The visualized lungs are clear. LIVER: Normal in size with homogeneous enhancement. No gross lesion or ductal dilatation. GALLBLADDER AND BILE DUCTS: Well distended. No calcified gallstones, wall thickening or pericholecystic fluid. PANCREAS: Normal in size with homogeneous enhancement. No gross lesion or ductal dilatation. SPLEEN: Normal in size and appearance. ADRENALS: No discrete nodule. KIDNEYS AND URETERS: Normal in size with homogeneous enhancement. No hydronephrosis. No solid mass. VASCULATURE: No aortic aneurysm. No aortic atherosclerotic calcifications are present. There is asymmetric dilatation of the left ovarian vein and severe dilatation of venous collaterals in the left adnexa. BOWEL: Evaluation of the bowel is limited in the absence of oral contrast. The small bowel loops are normal in caliber. The colon is grossly normal in appearance. No bowel wall thickening or obstruction. APPENDIX: Normal appendix. PERITONEUM: No free fluid. No free air. LYMPH NODES: No enlarged lymph nodes. BLADDER: Well distended and normal in appearance. REPRODUCTIVE: The uterus is normal in size. BONES: No acute fracture. Within normal limits for the patient's age. OTHER FINDINGS: There is a small fat containing umbilical hernia. IMPRESSION: No acute abdominal or pelvic abnormality. Asymmetric dilatation of the left ovarian vein and dilated venous collaterals in the left adnexa most compatible with pelvic congestion syndrome. Fatty liver.
[2018-10-07 15:46] VITALS: BP 108/71; PULSE 84; RESP 20; TEMP 98.7
== END 2018-10-07 16:25 | disposition left against medical advice (07) ==
LOC: C.ER 09:31
DX: R10.31 Right lower quadrant pain (principal)
CPT/HCPCS: 74177; 80053; 81001; 85025; 99285; J7030; Q9967

== ENCOUNTER 2018-10-07 17:31 | Emergency (ER) | payer MEDICAID ==
[2018-10-07 17:31] VITALS: BMI 25.4
[2018-10-07 18:00] VITALS: BP 110/71; PULSE 81; RESP 20; TEMP 98.1; O2SAT 100
--- NOTE | 2018-10-07 20:44 | C.PDOC ---
History Of Present Illness 33 year old female presents to the emergency department for follow-up of previous visit. Patient was seen earlier this morning for the same complains of abdominal pain, and had an abnormal finding in her CT scan. Patient was advised to stay and have an US done, but the patient had to leave. Patient now returns with complaints of persistent pain to the right lower and right left mid- abdomen. Patient denies vomiting and fever. Time Seen by Provider: 10/07/18 19:33 Chief Complaint (Nursing): Abdominal Pain History Per: Patient History/Exam Limitations: no limitations Onset/Duration Of Symptoms: Days (1) Current Symptoms Are (Timing): Still Present Quality Of Discomfort: "Pain" Associated Symptoms: denies: Fever, Vomiting Past Medical History Reviewed: Historical Data, Nursing Documentation, Vital Signs Vital Signs: Last Vital Signs Temp 98.1 F 10/07/18 17:58 Pulse 81 10/07/18 17:58 Resp 20 10/07/18 17:58 BP 110/71 10/07/18 17:58 Pulse Ox 100 10/07/18 17:58 - Medical History PMH: No Chronic Diseases Denies: Chronic Kidney Disease Surgical History: Tonsillectomy (08/06/2017) Family History: States: No Known Family Hx - Social History Hx Tobacco Use: No Hx Alcohol Use: Yes Hx Substance Use: No - Immunization History Hx Tetanus Toxoid Vaccination: No Hx Influenza Vaccination: No Hx Pneumococcal Vaccination: No Review Of Systems Except As Marked, All Systems Reviewed And Found Negative. Constitutional: Negative for: Fever, Chills Gastrointestinal: Positive for: Abdominal Pain. Negative for: Nausea, Vomiting Physical Exam - Physical Exam Appears: Non-toxic, No Acute Distress Skin: Normal Color, Warm, Dry Head: Atraumatic, Normacephalic Eye(s): bilateral: Normal Inspection, PERRL, EOMI Nose: Normal Oral Mucosa: Moist Neck: Normal, Supple Chest: Symmetrical, No Tenderness Cardiovascular: Rhythm Regular, No Murmur Respiratory: Normal Breath Sounds, No Rales, No Rhonchi, No Wheezing Gastrointestinal/Abdominal: Soft, Tenderness (suprapubic tenderness, right and left mid abdominal tenderness), No Guarding, No Rebound Back: No CVA Tenderness Neurological/Psych: Oriented x3, Normal Speech, Normal Cognition ED Course And Treatment O2 Sat by Pulse Oximetry: 100 (RA) Pulse Ox Interpretation: Normal - CT Scan/US Pelvic US Other Rad Studies (CT/US): Read By Radiologist, Radiology Report Reviewed CT/US Interpretation: History. Pelvic pain , posterior pelvic congestion syndrome on CT. Comparison. None available. Technique. TA/TV. Findings. Uterus. Measures 7.78 x 4.38 x 4.9 cm. Normal in size and appearance. No fibroid or other mass lesion seen. Endometrium. Measures 7.3 mm in diameter. Unremarkable. Right ovary. Measures 4.25 x 3.39 x 3.49 cm. No solid mass. Normal flow. Multiple cysts the largest measure 1.38 x 1.54 x 1.5 cm and 1.01 x 1.37 x 1.31 cm. Left ovary. Measures 3.11 x 2.03 x 2.51 cm. No solid mass. Normal flow. Multiple cysts the largest measure 1.18 x 0.78 x 0.78 cm and 1.36 x 0.78 x 1.12 cm. Free fluid. Free fluid noted. Other Findings. None. Impression. 1. Bilateral ovarian cysts. 2. Free fluid in the cul-de-sac. . Electronically signed on Oct 07, 2018 9:45:14 PM EST by: Sebastian Quintana M.D., TRAMAINE Certified By ABR & CBC[employer]. Fellowship Trained MRI and CT Specialist Progress Note: Previous CT Abdomen from earlier today: Asymmetric dilatation of the left ovarian vein and dilated venous collaterals in the left adnexa most compatible with pelvic congestion syndrome. Plan: US Pelvis. Pt remained comfortable in ED in NAD, VSS. Advised CHILD AND FAMILY COUNSELOR follow up- Return precautions were discussed at length with the pt who expressed understanding of these instructions Reassessment Condition: Improved (Pt appears well, US reviewd and discussed with pt.) Disposition Counseled Patient/Family Regarding: Diagnosis, Need For Followup, Rx Given - Disposition Disposition: HOME/ ROUTINE Disposition Time: 22:01 Condition: STABLE Additional Instructions: Please take motrin or advil for pain Follow up with CHILD AND FAMILY COUNSELOR Return to ER if severe pain, vomiting, dizziness or worse Instructions: Ovarian Cyst (DC) Forms: [employer] (Irish), Work Excuse - Clinical Impression Clinical Impression: Bilateral ovarian cysts - [place] / TRAVELING [employer]ION[employer] / Resident Statement MD/DO has reviewed & agrees with the documentation as recorded. - Scribe Statement The provider has reviewed the documentation as recorded by the Scribe (Jerome Waldron) All medical record entries made by the Scribe were at my direction and personally dictated by me. I have reviewed the chart and agree that the record accurately reflects my personal performance of the history, physical exam, medical decision making, and the department course for this patient. I have also personally directed, reviewed, and agree with the discharge instructions and disposition.
--- NOTE | 2018-10-08 11:56 | US ---
Date of service: 10/07/2018 HISTORY: pelvic pain, Poss pelvic congestion syndrome on CT COMPARISON: CT abdomen pelvis with IV contrast performed 10/07/18 TECHNIQUE: Real-time transabdominal pelvic ultrasound was performed. In addition a transvaginal pelvic ultrasound was necessary to better depict pelvic anatomy. FINDINGS: UTERUS: Measures 7.8 x 4.4 x 4.9 cm. Anteverted. ENDOMETRIUM: Measures 7 mm in diameter. CERVIX: No cervical abnormality identified. RIGHT OVARY: Measures 4.3 x 3.4 x 3.5 cm. Blood flow is demonstrated. Follicles. LEFT OVARY: Measures 3.1 x 2.0 x 2.5 cm. Blood flow is demonstrated. Follicles. FREE FLUID: Small pelvic free fluid. OTHER FINDINGS: Prominent pelvic vasculature may be seen in the setting of pelvic congestion syndrome. IMPRESSION: Small pelvic free fluid. Prominent pelvic vasculature may be seen in setting of pelvic congestion syndrome. Preliminary impression was provided by GRISELDA Oscar
== END 2018-10-07 22:11 | disposition home or self-care (01) ==
LOC: C.ER 17:31
DX: N83.201 Unspecified ovarian cyst, right side (principal); N83.202 Unspecified ovarian cyst, left side

== ENCOUNTER 2018-10-12 08:13 | Day surgery (SDC) | payer MEDICAID ==
[2018-06-12 06:16] VITALS: BMI 25.4
[2018-10-12 09:06] VITALS: O2SAT 100
[2018-10-12] MEDS ORDERED: Lactated Ringer's 500 ML IV ONE (10:50)
[2018-10-12] MEDS ORDERED: Propofol 10 mg/ml Inj (20 ML) ONE (10:54)
[2018-10-12] MEDS ORDERED: Lidocaine Hydrochloride 5 ML INJ ONE (11:03)
[2018-10-12] MEDS ORDERED: Lactated Ringer's 500 ML IV SCH (11:15)
[2018-10-12 14:09] VITALS: TEMP 98
[2018-10-12 14:10] VITALS: RESP 20
[2018-10-12 14:19] VITALS: BP 105/70; PULSE 75
== END 2018-10-12 13:00 | disposition home or self-care (01) ==
LOC: C.ENDO 08:13
PROVIDERS: ATTEND Internal Medicine Gastroenterology
DX: K62.5 Hemorrhage of anus and rectum (principal); K64.8 Other hemorrhoids
CPT/HCPCS: 45378; 84703; J2704; J3010; J7120

== ENCOUNTER 2019-01-12 09:33 | Emergency (ER) | payer SELFPAY ==
[2019-01-12 09:34] VITALS: BMI 25.4
[2019-01-12 09:42] VITALS: BP 105/68; PULSE 91; RESP 18; TEMP 97.5; O2SAT 100
--- NOTE | 2019-01-12 10:43 | C.PDOC ---
History Of Present Illness 33 y/o female, who is 12 weeks A3, comes in to ED complaining of vaginal spotting and headache since last night. Patient also complains of constipation. She denies any abdominal pain, dizziness, vaginal bleeding, diar mateo, or back pain. Patient has her first appointment on 01/16/19. Time Seen by Provider: 01/12/19 09:48 Chief Complaint (Nursing): Female Genitourinary History Per: Patient History/Exam Limitations: no limitations Onset/Duration Of Symptoms: Days Current Symptoms Are (Timing): Still Present Past Medical History Reviewed: Historical Data, Nursing Documentation, Vital Signs Vital Signs: Last Vital Signs Temp 97.5 F L 01/12/19 09:38 Pulse 91 H 01/12/19 09:38 Resp 18 01/12/19 09:38 BP 105/68 01/12/19 09:38 Pulse Ox 100 01/12/19 09:38 - Medical History PMH: Denies: Fractures, Chronic Kidney Disease Surgical History: Tonsillectomy (08/06/2017) Family History: States: No Known Family Hx - Social History Hx Tobacco Use: No Hx Alcohol Use: Yes Hx Substance Use: No - Immunization History Hx Tetanus Toxoid Vaccination: No Hx Influenza Vaccination: No Hx Pneumococcal Vaccination: No Review Of Systems Except As Marked, All Systems Reviewed And Found Negative. Constitutional: Negative for: Fever Cardiovascular: Negative for: Chest Pain Gastrointestinal: Positive for: Constipation. Negative for: Nausea, Vomiting, Abdominal Pain Genitourinary: Positive for: Other (Vaginal spotting, brown). Negative for: Dysuria, Vaginal Bleeding Neurological: Positive for: Headache. Negative for: Dizziness Physical Exam - Physical Exam Appears: Non-toxic, No Acute Distress Skin: Warm, Dry, No Rash Head: Atraumatic, Normacephalic Eye(s): bilateral: Normal Inspection, PERRL, EOMI Oral Mucosa: Moist Throat: No Erythema, No Exudate Neck: Normal ROM, Supple Lymphatic: Normal Exam Chest: Symmetrical, No Tenderness Cardiovascular: Rhythm Regular, No Friction Rub, No Murmur Respiratory: Normal Breath Sounds, No Rales, No Rhonchi, No Wheezing Gastrointestinal/Abdominal: Soft, No Tenderness, No Guarding, No Rebound, Other (gravid) Extremity: Normal ROM, No Swelling Extremity: Bilateral: Atraumatic, Normal ROM Neurological/Psych: Oriented x3, Normal Speech, Normal Motor, Normal Sensation Gait: Steady ED Course And Treatment - Laboratory Results Result Diagrams: 01/12/19 10:49 01/12/19 10:49 O2 Sat by Pulse Oximetry: 100 (RA) Pulse Ox Interpretation: Normal - CT Scan/US Obstetrics US Other Rad Studies (CT/US): Read By Radiologist, Radiology Report Reviewed CT/US Interpretation: Findings: The uterus measures approximately 15.8 x 7.3 x 11.4 cm. Anteverted. Cervix length measures approximately 5.4 cm. There is a single intrauterine fetus present. The crown-rump length measures 5.8 cm and is compatible with a gestational age of 12 weeks 2 days. There is heart motion which measured 152.3 BPM. The right ovary measures 3.8 x 2.4 x 2.8 cm. Blood flow is demonstrated to the right ovary. The left ovary is not visualized. Impression: Live single intrauterine with estimated gestational age 12 weeks 2 days. heart rate 152.3 bpm. Advise an anomaly screen at 16-18 weeks gestational age. The left ovary is not visualized. Medical Decision Making Medical Decision Making: Plan: --Labs --UA --Transvaginal US On re-exam, the patient reports improvement of symptoms. Lungs are CTA, heart is RRR, Abdomen is soft, non-tender and tolerating Po well. Pt is ambulatory in the ED with steady gait. Follow up with the medical doctor within 1-2 days. Return if worsened. Disposition - Disposition Referrals: [facility] [Outside] Disposition: HOME/ ROUTINE Disposition Time: 12:54 Condition: GOOD Additional Instructions: YOU MUST FOLLOW UP WITH YOUR OBGYN WITHIN 2 DAYS FOR REPEAT BETA. RETURN TO THE ED IF WORSENED PAIN OR BLEEDING. YOU CAN TAKE METAMUCIL, BUT CONFIRM THAT WITH YOUR OBGYN. 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 - Scribe Statement The provider has reviewed the documentation as recorded by the Scribe Aide Daus All medical record entries made by the Scribe were at my direction and personally dictated by me. I have reviewed the chart and agree that the record accurately reflects my personal performance of the history, physical exam, medical decision making, and the department course for this patient. I have also personally directed, reviewed, and agree with the discharge instructions and disposition.
[2019-01-12 11:00] LABS: BASO % 0.2 % (0.0-2.0); EOS % 0.3 % (0.0-4.0); HEMOGLOBIN 11.6 g/dL (11.0-16.0); LYMPH # 1.3 K/uL (1.0-4.3); LYMPH % 20.7 % (20.0-40.0); MEAN CELL VOLUME 89.3 fL (81.0-99.0); MEAN CORPUSCULAR HEMOGLOBIN 29.8 pg (27.0-31.0); MEAN CORPUSCULAR HGB CONC 33.4 g/dL (33.0-37.0); MEAN PLATELET VOLUME 10.5 fL (7.2-11.7); MONO # 0.5 K/uL (0.0-0.8); MONO % 7.2 % (0.0-10.0); NEUT # 4.5 K/uL (1.8-7.0); NEUT % 71.6 % (50.0-75.0); RBC 3.88 Mil/uL (3.80-5.20); RED CELL DISTRIBUTION WIDTH 13.9 % (11.5-14.5); WHITE BLOOD COUNT 6.4 K/uL (4.8-10.8)
[2019-01-12 11:03] LABS: HCG,QUALITATIVE URINE POSITIVE (NEGATIVE)
[2019-01-12 11:04] LABS: SQUAMOUS EPITHIAL 1 /hpf (0-5); URINE BILIRUBIN NEGATIVE (NEGATIVE); URINE BLOOD NEGATIVE (NEGATIVE); URINE CLARITY Clear (Clear); URINE COLOR Yellow (YELLOW); URINE GLUCOSE (UA) NORMAL (Normal); URINE LEUKOCYTE ESTERASE NEG Leu/uL (Negative); URINE PROTEIN NEGATIVE (NEGATIVE); URINE UROBILINOGEN NORMAL mg/dL (0.2-1.0)
[2019-01-12 11:19] LABS: ALB/GLOB RATIO 1.4 (1.0-2.1); ALBUMIN 4.1 g/dL (3.5-5.0); ALT/SGPT 11 U/L (9-52); AST/SGOT 24 U/L (14-36); BLOOD UREA NITROGEN 10 mg/dL (7-17); CALCIUM 9.9 mg/dl (8.6-10.4); GFR NON-AFRICAN AMERICAN > 60
--- NOTE | 2019-01-12 12:27 | US ---
Date of service: 01/12/2019 Indication: 12 weeks,vag bleeding Comparison: Pelvic ultrasound performed 10/07/18 Technique: Transabdominal pelvic ultrasound Findings: The uterus measures approximately 15.8 x 7.3 x 11.4 cm. Anteverted. Cervix length measures approximately 5.4 cm. There is a single intrauterine fetus present. The crown-rump length measures 5.8 cm and is compatible with a gestational age of 12 weeks 2 days. There is heart motion which measured 152.3 BPM. The right ovary measures 3.8 x 2.4 x 2.8 cm. Blood flow is demonstrated to the right ovary. The left ovary is not visualized. Impression: Live single intrauterine with estimated gestational age 12 weeks 2 days. heart rate 152.3 bpm. Advise an anomaly screen at 16-18 weeks gestational age. The left ovary is not visualized.
== END 2019-01-12 13:15 | disposition home or self-care (01) ==
LOC: C.ER 09:33
DX: O20.0 Threatened abortion (principal); O26.891 Other specified pregnancy related conditions, first trimester; K59.00 Constipation, unspecified; Z3A.12 12 weeks gestation of pregnancy